=== PATIENT | female | born 1935 | race Hispanic/Latino ===

== ENCOUNTER → 2018-06-21 | Outpatient (CLI) | payer MEDICARE ==
[~2018-06-21] MED LIST: ASPI-1197 PO; ATOR10TA69 PO; BRIM15OS OU; CARV12.511 PO; DORZOL OU; FE F1CAP33 PO; GLIP10TA9 PO; LEVO100T6 PO; LOSA100T20 PO; METF-444 PO; OMEP20TA25 PO; SITA100T12 PO; TIMOL OU; latanoprost OU
== END | disposition home or self-care (01) ==
LOC: SHCH 09:50
PROVIDERS: ATTEND Internal Medicine Cardiovascular Disease
DX: R09.89 Other specified symptoms and signs involving the circulatory and respiratory systems (principal)
CPT/HCPCS: 93880

== ENCOUNTER 2021-03-27 18:19 | Emergency (ER) | payer MEDICARE ==
[~2021-03-27] VITALS: Ht 160 cm; Wt 52.2 kg
[~2021-03-27 18:19] MED LIST changes: -LOSA100T20 PO; +LOSA100T58 PO
[2021-03-27 18:22] VITALS: BP 149/44
[2021-03-27 20:23] VITALS: BP 164/68
[2021-03-27 20:39] LABS: HEMATOCRIT 21.6 % (36-48); MEAN CORPUSCULAR HEMOGLOBIN 23.5 pg (27.0-33.0); MEAN CORPUSCULAR HGB CONC 29.2 g/dL (32.0-36.0); MEAN CORPUSCULAR VOLUME 80.6 fL (79-99); PLATELET COUNT (AUTO) 338 K/uL (130-400); RED BLOOD CELL COUNT(AUTO) 2.68 MIL/uL (4.00-5.50); RED CELL DISTRIBUTION WIDTH 16.4 % (11.0-15.5); WHITE BLOOD COUNT (AUTO) 9.9 K/uL (4.8-10.8)
[2021-03-27 20:51] LABS: POTASSIUM 5.1 mmol/L (3.5-5.1)
[2021-03-27 20:54] LABS: INR 1.02 (0.85-1.15); PROTHROMBIN TIME 11.1 SEC (9.6-11.6)
[2021-03-27 20:55] LABS: PARTIAL THROMBOPLASTIN TIME 22.2 SEC (26.3-35.5)
[2021-03-27 20:56] LABS: ALBUMIN 2.6 g/dL (3.5-5.0); BILIRUBIN,TOTAL 0.3 mg/dL (0.2-1.0); TOTAL PROTEIN, SERUM 6.7 g/dL (6.0-8.3)
[2021-03-28 00:35] VITALS: BP 155/55
[2021-03-28 02:19] VITALS: BP 156/63
[2021-03-28 04:01] VITALS: BP 157/59
== END 2021-03-28 04:13 | disposition home or self-care (01) ==
LOC: EDH 18:19
DX: D64.9 Anemia, unspecified (principal); E11.9 Type 2 diabetes mellitus without complications; I10 Essential (primary) hypertension; Z79.82 Long term (current) use of aspirin; Z79.84 Long term (current) use of oral hypoglycemic drugs; Z95.1 Presence of aortocoronary bypass graft; Z79.899 Other long term (current) drug therapy; Z90.710 Acquired absence of both cervix and uterus; Z98.890 Other specified postprocedural states
CPT/HCPCS: 36415 ×2; 36430; 80053; 85014; 85018; 85027; 85610; 85730; 86850; 86900; 86901; 86923; 99285; P9016

== ENCOUNTER → 2021-05-06 | Outpatient (CLI) | payer MEDICARE ==
[~2021-05-06] MED LIST changes: +IOHEXOL-350 75 ML VIAL IV ONE
== END | disposition home or self-care (01) ==
LOC: RAH 08:50
PROVIDERS: ATTEND Internal Medicine Gastroenterology
DX: C18.7 Malignant neoplasm of sigmoid colon (principal); K57.30 Diverticulosis of large intestine without perforation or abscess without bleeding; I51.7 Cardiomegaly; I25.10 Atherosclerotic heart disease of native coronary artery without angina pectoris; Z90.49 Acquired absence of other specified parts of digestive tract
CPT/HCPCS: 74178; Q9967

== ENCOUNTER 2021-08-08 18:54 | Emergency (ER) | payer MEDICARE ==
[~2021-08-08] VITALS: Ht 162.6 cm; Wt 59.9 kg
[~2021-08-08 18:54] MED LIST changes: -IOHEXOL-350 75 ML VIAL IV ONE
[2021-08-08 19:32] LABS: BASOPHILS % (AUTO) 0.6 % (0.0-5.0); EOSINOPHILS % (AUTO) 1.9 % (0.0-8.0); HEMATOCRIT 36.1 % (36-48); MEAN CORPUSCULAR HEMOGLOBIN 29.4 pg (27.0-33.0); MEAN CORPUSCULAR HGB CONC 32.1 g/dL (32.0-36.0); MEAN CORPUSCULAR VOLUME 91.6 fL (79-99); MONOCYTES % (AUTO) 7.1 % (3.0-13.0); NEUTROPHILS % (AUTO) 69.1 % (40.0-77.0); PLATELET COUNT (AUTO) 679 K/uL (130-400); RED BLOOD CELL COUNT(AUTO) 3.94 MIL/uL (4.00-5.50); RED CELL DISTRIBUTION WIDTH 15.7 % (11.0-15.5); WHITE BLOOD COUNT (AUTO) 14.1 K/uL (4.8-10.8)
[2021-08-08 19:34] LABS: APPEARANCE,URINE Clear (CLEAR); BILIRUBIN,URINE Negative (NEGATIVE); COLOR,URINE Yellow (YELLOW); GLUCOSE, URINE (UA) TRACE mg/dL (NEGATIVE); KETONES,URINE Negative (NEGATIVE); LEUKOCYTE ESTERASE ,URINE Trace (NEGATIVE); NITRATE,URINE Negative (NEGATIVE); OCCULT BLOOD,URINE Negative (NEGATIVE); PROTEIN,URINE Negative (NEGATIVE); UROBILINOGEN,URINE 0.2 mg/dL (0.2-1.0)
[2021-08-08 19:45] LABS: BACTERIA,URINE Moderate /HPF (None Seen); MUCUS,URINE Rare LPF (None Seen); RBC,URINE 0-1 /HPF (0-1)
[2021-08-08 19:47] LABS: POTASSIUM 3.2 mmol/L (3.5-5.1)
[2021-08-08 19:51] LABS: ALBUMIN 2.6 g/dL (3.5-5.0); BILIRUBIN,TOTAL 0.3 mg/dL (0.2-1.0); TOTAL PROTEIN, SERUM 7.6 g/dL (6.0-8.3)
[2021-08-09 00:12] VITALS: BP 160/62
== END 2021-08-09 00:19 | disposition home or self-care (01) ==
LOC: EDH 18:54
DX: E11.649 Type 2 diabetes mellitus with hypoglycemia without coma (principal); E78.00 Pure hypercholesterolemia, unspecified; I10 Essential (primary) hypertension; Z79.82 Long term (current) use of aspirin; Z79.84 Long term (current) use of oral hypoglycemic drugs; Z79.899 Other long term (current) drug therapy; Z90.49 Acquired absence of other specified parts of digestive tract; Z95.1 Presence of aortocoronary bypass graft
CPT/HCPCS: 36415; 71045; 80053; 81001; 82948; 83690; 85025; 87077; 87088; 87186; 93005

== ENCOUNTER 2021-08-30 20:28 | Inpatient (IN) | payer MEDICARE ==
[~2021-08-30] VITALS: Ht 162.6 cm; Wt 49.5 kg
[2021-08-30 20:54] LABS: BASOPHILS % (AUTO) 0.4 % (0.0-5.0); EOSINOPHILS % (AUTO) 2.7 % (0.0-8.0); HEMATOCRIT 36.5 % (36-48); LYMPHOCYTES % (AUTO) 18.2 % (21.0-51.0); MEAN CORPUSCULAR HEMOGLOBIN 30.1 pg (27.0-33.0); MEAN CORPUSCULAR HGB CONC 32.6 g/dL (32.0-36.0); MEAN CORPUSCULAR VOLUME 92.2 fL (79-99); MONOCYTES % (AUTO) 5.2 % (3.0-13.0); NEUTROPHILS % (AUTO) 72.9 % (40.0-77.0); PLATELET COUNT (AUTO) 631 K/uL (130-400); RED BLOOD CELL COUNT(AUTO) 3.96 MIL/uL (4.00-5.50); RED CELL DISTRIBUTION WIDTH 16.6 % (11.0-15.5); WHITE BLOOD COUNT (AUTO) 22.6 K/uL (4.8-10.8)
[2021-08-30] MEDS ORDERED: 0.9%NACL 1000ML 1,000 ML IV ONE (21:00)
[2021-08-30] MEDS ORDERED: HYDRALAZINE 20MG/ML VIAL IV ONE (21:00)
[2021-08-30 21:25] LABS: APPEARANCE,URINE Clear (CLEAR); BILIRUBIN,URINE Negative (NEGATIVE); COLOR,URINE Yellow (YELLOW); GLUCOSE, URINE (UA) Negative (NEGATIVE); KETONES,URINE Negative (NEGATIVE); LEUKOCYTE ESTERASE ,URINE Trace (NEGATIVE); NITRATE,URINE Negative (NEGATIVE); OCCULT BLOOD,URINE Negative (NEGATIVE); PROTEIN,URINE Negative (NEGATIVE); UROBILINOGEN,URINE 0.2 mg/dL (0.2-1.0)
[2021-08-30 21:48] LABS: RBC,URINE 0-1 /HPF (0-1)
[2021-08-30 21:50] LABS: SQUAMOUS EPITHELIAL CELL,UR Rare /HPF (0-2); TRANSITIONAL EPI CELLS,URINE Few /HPF (None Seen)
[2021-08-30 21:51] LABS: BACTERIA,URINE Moderate /HPF (None Seen)
[2021-08-30 21:59] LABS: CREATININE 1.1 mg/dL (0.5-1.5); POTASSIUM 4.7 mmol/L (3.5-5.1)
[2021-08-30] MEDS ORDERED: AZITHROMYCIN 250 MG TABLET PO ONE (22:00)
[2021-08-30] MEDS ORDERED: CEFTRIAXONE 1G VIAL IVP ONE (22:00)
[2021-08-30 22:04] LABS: ALBUMIN 2.7 g/dL (3.5-5.0); BILIRUBIN,TOTAL 0.4 mg/dL (0.2-1.0); TOTAL PROTEIN, SERUM 7.9 g/dL (6.0-8.3)
[2021-08-30] MEDS ORDERED: IOHEXOL-350 75 ML VIAL IV ONE (22:11)
[2021-08-30] MEDS ORDERED: ACETAMINOPHEN 325 MG TAB PO PRN ×2 (22:30)
[2021-08-30] MEDS ORDERED: ONDANSETRON 4MG INJ IV PRN (22:30)
[2021-08-30] MEDS ORDERED: GUAIFENESIN-DM 200/20 MG 10 ML PO PRN (22:30)
[2021-08-30] MEDS ORDERED: LACTULOSE 20 GM/30 ML UDCUP PO PRN (22:30)
[2021-08-30] MEDS: LACTATED RINGERS 1000ML 1,000 ML IV SCH (22:56)
[2021-08-30 23:30] LABS: INR 1.06 (0.85-1.15); PROTHROMBIN TIME 11.5 SEC (9.6-11.6)
[2021-08-30 23:32] LABS: PARTIAL THROMBOPLASTIN TIME 25.5 SEC (26.3-35.5)
[2021-08-30] MEDS ORDERED: LEVO88TA4 PO (23:54)
[2021-08-30] MEDS ORDERED: ASPI-1197 PO (23:54)
[2021-08-30] MEDS ORDERED: FERR-72 PO (23:54)
[2021-08-30] MEDS ORDERED: METF500S7 PO (23:54)
[2021-08-30] MEDS ORDERED: ATOR10TA PO (23:56)
[2021-08-30] MEDS ORDERED: GLIP10TA9 PO (23:56)
[2021-08-31] VITALS (8 sets, daily range): BP systolic 117–210; BP diastolic 46–91
[2021-08-31] MEDS ORDERED: LABETALOL 20MG VIAL IV PRN
[2021-08-31 00:12] LABS: ABG BASE EXCESS -0.6 mmol/L (-2.0-3.0); ABG OXYGEN SATURATION 97.6 % (95.0-99.0); ABG PCO2 31 mmHg (32-45)
[2021-08-31] MEDS: ZOSYN 3.375GM+NS 50ML 50 ML IV SCH ×2 (04:54→13:00)
[2021-08-31] MEDS ORDERED: DEXTROSE 50%-WATER 50 ML DISP.SYRIN IV PRN (07:00)
[2021-08-31] MEDS ORDERED: GLUCAGON 1MG KIT 1 MG ML IM PRN (07:00)
[2021-08-31] MEDS: LACTATED RINGERS 1000ML 1,000 ML IV SCH ×2 (08:30→18:27)
[2021-08-31 08:33] LABS: HEMATOCRIT 28.7 % (36-48); MEAN CORPUSCULAR HGB CONC 32.4 g/dL (32.0-36.0); MEAN CORPUSCULAR VOLUME 92.6 fL (79-99); RED BLOOD CELL COUNT(AUTO) 3.1 MIL/uL (4.00-5.50); WHITE BLOOD COUNT (AUTO) 18.5 K/uL (4.8-10.8)
[2021-08-31 08:44] LABS: ALBUMIN 2.2 g/dL (3.5-5.0); BILIRUBIN,TOTAL 0.2 mg/dL (0.2-1.0); CREATININE 0.9 mg/dL (0.5-1.5); POTASSIUM 3.6 mmol/L (3.5-5.1); TOTAL PROTEIN, SERUM 6.1 g/dL (6.0-8.3)
[2021-08-31] MEDS: FAMOTIDINE 20MG VIAL IV SCH ×2 (11:29→20:44)
[2021-08-31] MEDS: ENOXAPARIN SODIUM 30 MG/0.3 ML SQ SCH (11:29)
[2021-08-31] MEDS: 0.9% NACL 250ML IVPB SCH (17:39)
[2021-08-31] MEDS: AZITHROMYCIN 500MG+NS 250ML IV SCH (17:39)
[2021-08-31] MEDS: CEFTRIAXONE 1G VIAL IVP SCH (17:39)
[2021-08-31] MEDS: HYDRALAZINE 20MG/ML VIAL IV PRN (20:46)
[2021-09-01] MEDS ORDERED: ASPIRIN 81MG CHEW TAB ONE (02:51)
[2021-09-01] MEDS ORDERED: ATORVASTATIN 20 MG TABLET ONE (02:51)
[2021-09-01] MEDS ORDERED: ASPIRIN 81 MG EC TAB PO ONE ×2 (03:00)
[2021-09-01] MEDS ORDERED: ATORVASTATIN 20 MG TABLET PO ONE ×2 (03:00)
[2021-09-01 03:28] VITALS: BP 153/63
[2021-09-01 05:23] LABS: HEMATOCRIT 28.8 % (36-48); MEAN CORPUSCULAR HEMOGLOBIN 30.3 pg (27.0-33.0); MEAN CORPUSCULAR HGB CONC 33.3 g/dL (32.0-36.0); MEAN CORPUSCULAR VOLUME 90.9 fL (79-99); RED BLOOD CELL COUNT(AUTO) 3.17 MIL/uL (4.00-5.50); RED CELL DISTRIBUTION WIDTH 16.4 % (11.0-15.5); WHITE BLOOD COUNT (AUTO) 16.1 K/uL (4.8-10.8)
[2021-09-01 05:45] LABS: ALBUMIN 2.2 g/dL (3.5-5.0); BILIRUBIN,TOTAL 0.4 mg/dL (0.2-1.0); CREATININE 0.7 mg/dL (0.5-1.5); THYROID STIMULATING HORMONE 17.75 uIU/mL (0.36-3.74); TOTAL PROTEIN, SERUM 6.1 g/dL (6.0-8.3)
[2021-09-01 05:52] LABS: POTASSIUM 2.8 mmol/L (3.5-5.1)
[2021-09-01] MEDS ORDERED: POTASSIUM CHLORIDE 10% ELIXIR 20 MEQ/15 ML UDCUP PO PRN (06:00)
[2021-09-01] MEDS ORDERED: LIDOCAINE HCL-MPF 1% 2ML VIAL IV PRN (06:00)
[2021-09-01] MEDS ORDERED: POTASSIUM CHLORIDE 20MEQ/100ML 100 ML IV PRN (06:00)
[2021-09-01] MEDS: LACTATED RINGERS 1000ML 1,000 ML IV SCH ×3 (06:06→21:57)
[2021-09-01 07:30] VITALS: BP 195/74
[2021-09-01] MEDS: KCL 20 MEQ ERTAB PO PRN ×3 (07:42→18:38)
[2021-09-01] MEDS: FAMOTIDINE 20MG VIAL IV SCH ×2 (09:00→21:58)
[2021-09-01] MEDS: ENOXAPARIN SODIUM 30 MG/0.3 ML SQ SCH (11:05)
[2021-09-01] MEDS: ASPIRIN 81 MG EC TAB PO SCH (11:06)
[2021-09-01 11:33] VITALS: BP 113/45
[2021-09-01 15:35] VITALS: BP 199/84
[2021-09-01] MEDS: INSULIN HUMULIN R 100 UNIT/ML 3ML SQ SCH ×2 (16:32→22:06)
[2021-09-01] MEDS: CEFTRIAXONE 1G VIAL IVP SCH (17:02)
[2021-09-01] MEDS: 0.9% NACL 250ML IVPB SCH (17:04)
[2021-09-01] MEDS: AZITHROMYCIN 500MG+NS 250ML IV SCH (17:04)
[2021-09-01 20:15] VITALS: BP 178/83
[2021-09-01] MEDS: ATORVASTATIN 20 MG TABLET PO SCH (21:58)
[2021-09-01 23:16] VITALS: BP 131/70
[2021-09-02 03:55] VITALS: BP 136/59
[2021-09-02] MEDS ORDERED: LEVOTHYROXINE 88 MCG TABLET ONE (05:29)
[2021-09-02 05:37] LABS: HEMATOCRIT 27.7 % (36-48); MEAN CORPUSCULAR HEMOGLOBIN 29.7 pg (27.0-33.0); MEAN CORPUSCULAR HGB CONC 32.9 g/dL (32.0-36.0); MEAN CORPUSCULAR VOLUME 90.5 fL (79-99); RED BLOOD CELL COUNT(AUTO) 3.06 MIL/uL (4.00-5.50); RED CELL DISTRIBUTION WIDTH 16.4 % (11.0-15.5); WHITE BLOOD COUNT (AUTO) 15.1 K/uL (4.8-10.8)
[2021-09-02 05:51] LABS: BILIRUBIN,TOTAL 0.4 mg/dL (0.2-1.0); CREATININE 0.7 mg/dL (0.5-1.5); POTASSIUM 3.4 mmol/L (3.5-5.1)
[2021-09-02] MEDS: INSULIN HUMULIN R 100 UNIT/ML 3ML SQ SCH ×4 (06:05→20:03)
[2021-09-02] MEDS: KCL 20 MEQ ERTAB PO PRN (06:48)
[2021-09-02] MEDS: LEVOTHYROXINE 88 MCG TABLET PO SCH (06:49)
[2021-09-02] MEDS: FAMOTIDINE 20MG VIAL IV SCH ×2 (09:16→20:15)
[2021-09-02] MEDS: ASPIRIN 81 MG EC TAB PO SCH (09:17)
[2021-09-02] MEDS: LOSARTAN 50 MG TABLET PO SCH (09:17)
[2021-09-02] MEDS: ENOXAPARIN SODIUM 30 MG/0.3 ML SQ SCH (09:18)
[2021-09-02] MEDS: LACTATED RINGERS 1000ML 1,000 ML IV SCH (09:21)
[2021-09-02 12:30] VITALS: BP 174/78
[2021-09-02 15:22] LABS: HEMATOCRIT 28.7 % (36-48); MEAN CORPUSCULAR HEMOGLOBIN 29.9 pg (27.0-33.0); MEAN CORPUSCULAR HGB CONC 33.1 g/dL (32.0-36.0); MEAN CORPUSCULAR VOLUME 90.3 fL (79-99); RED BLOOD CELL COUNT(AUTO) 3.18 MIL/uL (4.00-5.50); RED CELL DISTRIBUTION WIDTH 16.3 % (11.0-15.5)
[2021-09-02 15:24] VITALS: BP 189/79
[2021-09-02] MEDS: CEFTRIAXONE 1G VIAL IVP SCH (16:16)
[2021-09-02] MEDS: 0.9% NACL 250ML IVPB SCH (16:16)
[2021-09-02] MEDS: AZITHROMYCIN 500MG+NS 250ML IV SCH (16:16)
[2021-09-02 19:43] VITALS: BP 201/88
[2021-09-02] MEDS: ZOSYN 3.375GM +NS 50ML IV SCH (20:15)
[2021-09-02] MEDS: ATORVASTATIN 20 MG TABLET PO SCH (20:15)
[2021-09-02] MEDS: HYDRALAZINE 20MG/ML VIAL IV PRN (20:16)
[2021-09-02] MEDS ORDERED: LACTATED RINGERS 1000ML 1,000 ML IV ONE (20:23)
[2021-09-02 22:41] VITALS: BP 152/65
[2021-09-03 04:06] VITALS: BP 133/60
[2021-09-03] MEDS: ZOSYN 3.375GM +NS 50ML IV SCH ×3 (04:56→17:28)
[2021-09-03 05:08] LABS: HEMATOCRIT 28.1 % (36-48); MEAN CORPUSCULAR HGB CONC 33.1 g/dL (32.0-36.0); MEAN CORPUSCULAR VOLUME 90.6 fL (79-99); RED BLOOD CELL COUNT(AUTO) 3.1 MIL/uL (4.00-5.50); RED CELL DISTRIBUTION WIDTH 16.3 % (11.0-15.5); WHITE BLOOD COUNT (AUTO) 17.6 K/uL (4.8-10.8)
[2021-09-03 05:38] LABS: CREATININE 0.8 mg/dL (0.5-1.5); POTASSIUM 3.7 mmol/L (3.5-5.1)
[2021-09-03] MEDS: LEVOTHYROXINE 88 MCG TABLET PO SCH (05:50)
[2021-09-03 08:00] VITALS: BP 157/72
[2021-09-03] MEDS: LOSARTAN 50 MG TABLET PO SCH (09:00)
[2021-09-03] MEDS: FAMOTIDINE 20MG VIAL IV SCH ×2 (09:00→19:45)
[2021-09-03] MEDS: ASPIRIN 81 MG EC TAB PO SCH (09:00)
[2021-09-03] MEDS: ENOXAPARIN SODIUM 30 MG/0.3 ML SQ SCH (09:01)
[2021-09-03] MEDS: INSULIN HUMULIN R 100 UNIT/ML 3ML SQ SCH ×4 (09:02→20:09)
[2021-09-03] MEDS ORDERED: SODIUM CHLORIDE 3% FOR INHALATION 4 ML/AMP VIAL.NEB IH ONE ×2 (11:33→18:44)
[2021-09-03 12:29] VITALS: BP 156/67
[2021-09-03 13:09] LABS: HEMATOCRIT 28.9 % (36-48); MEAN CORPUSCULAR HEMOGLOBIN 30.2 pg (27.0-33.0); MEAN CORPUSCULAR HGB CONC 32.9 g/dL (32.0-36.0); MEAN CORPUSCULAR VOLUME 91.7 fL (79-99); RED BLOOD CELL COUNT(AUTO) 3.15 MIL/uL (4.00-5.50); RED CELL DISTRIBUTION WIDTH 16.7 % (11.0-15.5); WHITE BLOOD COUNT (AUTO) 19.3 K/uL (4.8-10.8)
[2021-09-03 16:45] VITALS: BP 172/79
[2021-09-03] MEDS: ATORVASTATIN 20 MG TABLET PO SCH (19:45)
[2021-09-03 20:00] VITALS: BP 174/84
[2021-09-04] VITALS: BP 180/82
[2021-09-04] MEDS ORDERED: SODIUM CHLORIDE 3% FOR INHALATION 4 ML/AMP VIAL.NEB IH ONE
[2021-09-04] MEDS: ZOSYN 3.375GM +NS 50ML IV SCH ×2 (00:08→12:17)
[2021-09-04] MEDS: HYDRALAZINE 20MG/ML VIAL IV PRN (00:08)
[2021-09-04 01:30] VITALS: BP 158/88
[2021-09-04 04:00] VITALS: BP 142/67
[2021-09-04] MEDS: INSULIN HUMULIN R 100 UNIT/ML 3ML SQ SCH ×2 (05:53→12:16)
[2021-09-04] MEDS: LEVOTHYROXINE 88 MCG TABLET PO SCH (06:05)
[2021-09-04 07:00] VITALS: BP 138/59
[2021-09-04 07:58] LABS: HEMATOCRIT 28.2 % (36-48); MEAN CORPUSCULAR HEMOGLOBIN 29.9 pg (27.0-33.0); MEAN CORPUSCULAR HGB CONC 32.6 g/dL (32.0-36.0); MEAN CORPUSCULAR VOLUME 91.6 fL (79-99); RED BLOOD CELL COUNT(AUTO) 3.08 MIL/uL (4.00-5.50); RED CELL DISTRIBUTION WIDTH 16.5 % (11.0-15.5)
[2021-09-04 08:11] LABS: APPEARANCE,URINE CLEAR (CLEAR); BILIRUBIN,URINE NEGATIVE (NEGATIVE); COLOR,URINE YELLOW (YELLOW); GLUCOSE, URINE (UA) NEGATIVE (NEGATIVE); KETONES,URINE 5 mg/dL (NEGATIVE); LEUKOCYTE ESTERASE ,URINE NEGATIVE (NEGATIVE); NITRATE,URINE NEGATIVE (NEGATIVE); OCCULT BLOOD,URINE NEGATIVE (NEGATIVE); PROTEIN,URINE TRACE mg/dL (NEGATIVE); UROBILINOGEN,URINE 0.2 mg/dL (0.2-1.0)
[2021-09-04 08:13] LABS: CREATININE 0.8 mg/dL (0.5-1.5); POTASSIUM 3.5 mmol/L (3.5-5.1)
[2021-09-04 08:33] LABS: BACTERIA,URINE Few /HPF (None Seen); RBC,URINE 0-1 /HPF (0-1); SQUAMOUS EPITHELIAL CELL,UR Rare /HPF (0-2)
[2021-09-04] MEDS: ENOXAPARIN SODIUM 30 MG/0.3 ML SQ SCH (09:00)
[2021-09-04 11:00] VITALS: BP 125/63
[2021-09-04] MEDS: ASPIRIN 81 MG EC TAB PO SCH (12:21)
[2021-09-04] MEDS: FAMOTIDINE 20MG VIAL IV SCH (12:21)
[2021-09-04] MEDS: LOSARTAN 50 MG TABLET PO SCH (12:22)
[2021-09-04] MEDS ORDERED: AMOX-426 PO (12:28)
== END 2021-09-04 15:00 | disposition home or self-care (01) | DRG 871 ==
LOC: EDH 20:28 → EDHIP 22:17 → 4CH 08-31 02:08
PROVIDERS: ADMIT Hospitalist; ATTEND Hospitalist
DX: A41.9 Sepsis, unspecified organism (principal); J15.6 Pneumonia due to other Gram-negative bacteria; N39.0 Urinary tract infection, site not specified; E44.0 Moderate protein-calorie malnutrition; Z68.1 Body mass index [BMI] 19.9 or less, adult; E11.649 Type 2 diabetes mellitus with hypoglycemia without coma; E78.5 Hyperlipidemia, unspecified; Z20.822 Contact with and (suspected) exposure to COVID-19; I10 Essential (primary) hypertension; B95.0 Streptococcus, group A, as the cause of diseases classified elsewhere; E87.6 Hypokalemia; I25.10 Atherosclerotic heart disease of native coronary artery without angina pectoris; B96.1 Klebsiella pneumoniae [K. pneumoniae] as the cause of diseases classified elsewhere; E03.9 Hypothyroidism, unspecified; Z95.1 Presence of aortocoronary bypass graft; Z85.9 Personal history of malignant neoplasm, unspecified; Z90.710 Acquired absence of both cervix and uterus; Z90.49 Acquired absence of other specified parts of digestive tract; Z90.81 Acquired absence of spleen; Z82.3 Family history of stroke; Z80.3 Family history of malignant neoplasm of breast; Z83.3 Family history of diabetes mellitus; Z82.0 Family history of epilepsy and other diseases of the nervous system; Z82.5 Family history of asthma and other chronic lower respiratory diseases; Z82.49 Family history of ischemic heart disease and other diseases of the circulatory system
CPT/HCPCS: 36415; 36600; 70450; 70496; 70498; 71045; 80048; 80053; 81001; 82550; 82803; 82948; 83605; 84132; 84145; 84436; 84443; 84481; 84484; 85025; 85027; 85610; 85730; 86140; 87040; 87077; 87088; 87186; 87449; 87635; 87804; 87880; 93005; 93306; 93356; 94640; 97039; C9803; G0378; J0360; J0456; J0696; J1650; J1815; J2543; J3480; J3490; J7050; J7120; Q9967

== ENCOUNTER 2022-03-16 17:01 | Observation (INO) | payer MEDICARE ==
[~2022-03-16] VITALS: Ht 158.8 cm; Wt 61.2 kg
[~2022-03-16 17:01] MED LIST changes: -BRIM15OS OU; -CARV12.511 PO; +CARV12.580 PO; +CEFU500T67 PO; +CLOP75TA32 PO; -DORZOL OU; -FE F1CAP33 PO; +FERR-72 PO; +GLIP10TA19 PO; -GLIP10TA9 PO; -LEVO100T6 PO; +LEVO88TA4 PO; -OMEP20TA25 PO; +PANT40TA55 PO; -SITA100T12 PO; +SITA50TA PO; -TIMOL OU; -latanoprost OU
[2022-03-16 17:44] LABS: BASOPHILS % (AUTO) 0.9 % (0.0-5.0); EOSINOPHILS % (AUTO) 7.3 % (0.0-8.0); HEMATOCRIT 30.7 % (36-48); LYMPHOCYTES % (AUTO) 24.1 % (21.0-51.0); MEAN CORPUSCULAR HEMOGLOBIN 27.6 pg (27.0-33.0); MEAN CORPUSCULAR HGB CONC 32.2 g/dL (32.0-36.0); MEAN CORPUSCULAR VOLUME 85.5 fL (79-99); MONOCYTES % (AUTO) 10.1 % (3.0-13.0); NEUTROPHILS % (AUTO) 57.1 % (40.0-77.0); RED BLOOD CELL COUNT(AUTO) 3.59 MIL/uL (4.00-5.50); RED CELL DISTRIBUTION WIDTH 15.3 % (11.0-15.5); WHITE BLOOD COUNT (AUTO) 14.7 K/uL (4.8-10.8)
[2022-03-16 17:46] LABS: PLATELET COUNT (AUTO) 834 K/uL (130-400)
[2022-03-16 18:04] LABS: ALBUMIN 2.2 g/dL (3.5-5.0); BILIRUBIN,TOTAL 0.3 mg/dL (0.2-1.0); CREATININE 0.9 mg/dL (0.5-1.5); PLATELET MORPHOLOGY COMMENT INCREASED; TOTAL PROTEIN, SERUM 6.8 g/dL (6.0-8.3)
[2022-03-16 18:08] LABS: POTASSIUM 2.5 mmol/L (3.5-5.1)
[2022-03-16] MEDS ORDERED: POTASSIUM CHLORIDE 10% ELIXIR 20 MEQ/15 ML UDCUP PO ONE (18:30)
[2022-03-16] MEDS ORDERED: POTASSIUM CHLORIDE 10MEQ/100ML 10 MEQ/100 ML ML IV SCH (18:30)
[2022-03-16] MEDS ORDERED: POTASSIUM CHLORIDE 10% ELIXIR 20 MEQ/15 ML UDCUP ONE (19:34)
[2022-03-16] MEDS ORDERED: LIDOCAINE HCL-MPF 1% 2ML VIAL IV PRN (20:30)
[2022-03-16] MEDS ORDERED: VANCOMYCIN PROTOCOL PER PHARMACY IV PRN (20:30)
[2022-03-16] MEDS ORDERED: POTASSIUM CHLORIDE 20MEQ/100ML 100 ML IV PRN (20:30)
[2022-03-16] MEDS ORDERED: ASPIRIN 81MG CHEW TAB PO ONE (20:30)
[2022-03-16] MEDS ORDERED: ONDANSETRON 4MG INJ IV PRN (20:30)
[2022-03-16] MEDS ORDERED: ACETAMINOPHEN 325 MG TAB PO PRN (20:30)
[2022-03-16] MEDS ORDERED: KCL 20 MEQ ERTAB PO PRN (20:30)
[2022-03-16] MEDS ORDERED: ZOLPIDEM TARTRATE 5 MG TAB PO PRN (20:30)
[2022-03-16] MEDS ORDERED: METOPROLOL TARTRATE 1 MG/ML 5ML VIAL IV PRN (20:30)
[2022-03-16] MEDS ORDERED: ATOR40TA69 PO (20:46)
[2022-03-16] MEDS ORDERED: BRIM5DRO21 OP (20:46)
[2022-03-16] MEDS ORDERED: FURO40TA5 PO (20:46)
[2022-03-16] MEDS ORDERED: METO50TA18 PO (20:46)
[2022-03-16] MEDS ORDERED: MULT15TA3 PO (20:46)
[2022-03-16] MEDS ORDERED: INSU100V3 IJ (20:46)
[2022-03-16] MEDS ORDERED: LOSA25TA41 PO (20:46)
[2022-03-16] MEDS ORDERED: DORZ1DRO7 OP (20:46)
[2022-03-16] MEDS ORDERED: XALA2.5OS OD (20:46)
[2022-03-16] MEDS ORDERED: VANC1FRO IV (20:46)
[2022-03-16] MEDS ORDERED: INSU3INS3 SQ (20:46)
[2022-03-16] MEDS ORDERED: [UNRECOGNIZED DRUG - OTHER] PO (20:48)
[2022-03-16] MEDS: NITROGLYCERIN 1GM OINT 1 INCH/1GM TD SCH (20:55)
[2022-03-16] MEDS ORDERED: PHARMACY COMMUNICATION MISC SCH (21:00)
[2022-03-16] MEDS: INSULIN HUMULIN R 100 UNIT/ML 3ML SQ SCH (21:00)
[2022-03-17] MEDS: POTASSIUM CHLORIDE 10% ELIXIR 20 MEQ/15 ML UDCUP PO PRN ×2 (00:48→04:02)
[2022-03-17] MEDS: NITROGLYCERIN 1GM OINT 1 INCH/1GM TD SCH ×3 (04:01→20:55)
[2022-03-17 06:11] LABS: EOSINOPHILS % (AUTO) 11.4 % (0.0-8.0); HEMATOCRIT 30.9 % (36-48); LYMPHOCYTES % (AUTO) 22.8 % (21.0-51.0); MEAN CORPUSCULAR HEMOGLOBIN 27.7 pg (27.0-33.0); MEAN CORPUSCULAR HGB CONC 32.4 g/dL (32.0-36.0); MEAN CORPUSCULAR VOLUME 85.6 fL (79-99); MONOCYTES % (AUTO) 10.5 % (3.0-13.0); NEUTROPHILS % (AUTO) 53.9 % (40.0-77.0); RED BLOOD CELL COUNT(AUTO) 3.61 MIL/uL (4.00-5.50); RED CELL DISTRIBUTION WIDTH 15.3 % (11.0-15.5); WHITE BLOOD COUNT (AUTO) 15.5 K/uL (4.8-10.8)
[2022-03-17 06:18] LABS: PLATELET COUNT (AUTO) 907 K/uL (130-400)
[2022-03-17 06:26] LABS: HEMOGLOBIN A1C 8.2 % (4.0-6.0)
[2022-03-17] MEDS ORDERED: VANCOMYCIN 1G/250ML KIT 250 ML IV ONE (06:30)
[2022-03-17 06:38] LABS: CREATININE 0.7 mg/dL (0.5-1.5); POTASSIUM 4.4 mmol/L (3.5-5.1)
[2022-03-17] MEDS: INSULIN HUMULIN R 100 UNIT/ML 3ML SQ SCH ×4 (07:30→20:23)
[2022-03-17] MEDS: ASPIRIN 81MG CHEW TAB PO SCH (08:37)
[2022-03-17] MEDS: BRIMONIDINE TARTRATE 0.2% 5 ML BOTTLE OP SCH ×2 (08:37→21:00)
[2022-03-17] MEDS: FAMOTIDINE 20MG TAB PO SCH (08:37)
[2022-03-17] MEDS: ENOXAPARIN SODIUM 40 MG/0.4 ML SYRINGE SQ SCH (08:38)
[2022-03-17] MEDS: METOPROLOL TARTRATE 50 MG TAB PO SCH ×2 (08:40→20:55)
[2022-03-17] MEDS: LOSARTAN 25 MG TABLET PO SCH (08:40)
[2022-03-17] MEDS: DORZOLAMIDE HCL/TIMOLOL MALEAT DROPS 10 ML BOTTLE OP SCH ×2 (09:00→21:00)
[2022-03-17] MEDS: MULTIVITAMIN WITH MINERALS TABLET PO SCH (09:24)
[2022-03-17] MEDS: CEFTAZIDIME PENTAHYDRATE 1 GM/VIAL IVP SCH ×2 (18:18→23:34)
[2022-03-17 19:48] LABS: APPEARANCE,URINE Clear (CLEAR); BILIRUBIN,URINE Negative (NEGATIVE); COLOR,URINE Yellow (YELLOW); GLUCOSE, URINE (UA) TRACE mg/dL (NEGATIVE); KETONES,URINE Negative (NEGATIVE); LEUKOCYTE ESTERASE ,URINE Trace (NEGATIVE); NITRATE,URINE Negative (NEGATIVE); OCCULT BLOOD,URINE Negative (NEGATIVE); PH,URINE 7.5 (5.0-8.0); PROTEIN,URINE POS 1+ mg/dL (NEGATIVE)
[2022-03-17 19:58] LABS: BACTERIA,URINE Rare /HPF (None Seen); MUCUS,URINE Few LPF (None Seen); RBC,URINE 0-1 /HPF (0-1); SQUAMOUS EPITHELIAL CELL,UR Few /HPF (0-2)
[2022-03-17 20:00] VITALS: BP 142/75
[2022-03-17] MEDS ORDERED: ATORVASTATIN 40 MG TABLET PO SCH (21:00)
[2022-03-17] MEDS ORDERED: LATANOPROST 2.5 ML DROPS OD SCH (21:00)
[2022-03-18] VITALS: BP 126/75
[2022-03-18] MEDS: NITROGLYCERIN 1GM OINT 1 INCH/1GM TD SCH ×2 (03:48→12:30)
[2022-03-18] MEDS: GUAIFENESIN-CODEINE 5 ML SYRUP PO PRN ×2 (03:49→11:02)
[2022-03-18 04:04] VITALS: BP 134/82
[2022-03-18] MEDS ORDERED: VANCOMYCIN 750MG VIAL IVPB SCH (06:00)
[2022-03-18] MEDS ORDERED: 0.9% NACL 250ML 250 ML ONE (06:26)
[2022-03-18] MEDS: INSULIN HUMULIN R 100 UNIT/ML 3ML SQ SCH ×3 (06:49→16:37)
[2022-03-18 08:00] VITALS: BP 143/66
[2022-03-18] MEDS: DORZOLAMIDE HCL/TIMOLOL MALEAT DROPS 10 ML BOTTLE OP SCH (09:00)
[2022-03-18] MEDS: BRIMONIDINE TARTRATE 0.2% 5 ML BOTTLE OP SCH (09:00)
[2022-03-18] MEDS: METOPROLOL TARTRATE 50 MG TAB PO SCH (09:23)
[2022-03-18] MEDS: LOSARTAN 25 MG TABLET PO SCH (09:23)
[2022-03-18] MEDS: MULTIVITAMIN WITH MINERALS TABLET PO SCH (09:23)
[2022-03-18] MEDS: ASPIRIN 81MG CHEW TAB PO SCH (09:23)
[2022-03-18] MEDS: ENOXAPARIN SODIUM 40 MG/0.4 ML SYRINGE SQ SCH (09:26)
[2022-03-18] MEDS: CEFTAZIDIME PENTAHYDRATE 1 GM/VIAL IVP SCH ×2 (09:28→16:22)
[2022-03-18] MEDS: FAMOTIDINE 20MG TAB PO SCH (09:28)
[2022-03-18 12:00] VITALS: BP 132/73
[2022-03-18 16:00] VITALS: BP 137/77
== END 2022-03-18 18:30 ==
LOC: EDH 17:01 → EDHIP 18:28 → 3CH 03-17 14:45
PROVIDERS: ADMIT Hospitalist; ATTEND Hospitalist
DX: E87.6 Hypokalemia (principal); D72.829 Elevated white blood cell count, unspecified; D64.9 Anemia, unspecified; E11.65 Type 2 diabetes mellitus with hyperglycemia; R77.8 Other specified abnormalities of plasma proteins; J18.9 Pneumonia, unspecified organism; E87.5 Hyperkalemia; I10 Essential (primary) hypertension; I25.10 Atherosclerotic heart disease of native coronary artery without angina pectoris; I25.2 Old myocardial infarction; D75.839 Thrombocytosis, unspecified; E78.5 Hyperlipidemia, unspecified; J84.10 Pulmonary fibrosis, unspecified; K21.9 Gastro-esophageal reflux disease without esophagitis; E89.0 Postprocedural hypothyroidism; Z85.038 Personal history of other malignant neoplasm of large intestine; Z87.01 Personal history of pneumonia (recurrent); Z90.710 Acquired absence of both cervix and uterus; Z95.1 Presence of aortocoronary bypass graft; Z79.82 Long term (current) use of aspirin; Z79.84 Long term (current) use of oral hypoglycemic drugs; Z79.899 Other long term (current) drug therapy; Z98.890 Other specified postprocedural states; Z79.4 Long term (current) use of insulin
CPT/HCPCS: 36415 ×3; 80048; 80053; 80202; 81001; 82948 ×8; 83036; 83735; 84132 ×2; 84443; 84484 ×4; 85025 ×2; 87040 ×2; 87088; 93005; 96365; 96366 ×3; 96367; 96372 ×2; 96375; 96376 ×2; 97039; 97161; 99284; G0378 ×46; J0713 ×4; J1650 ×2; J1815 ×3; J3370 ×2; J7050